=== PATIENT | female | born 1980 ===

== ENCOUNTER 2022-02-20 12:34 | Inpatient (IN) | payer OTHER ==
[~2022-02-20] VITALS: Ht 162.6 cm; Wt 97.6 kg
[2022-02-20 13:32] LABS: BASOPHILS % (AUTO) 0.8 % (0.0-2.0); EOSINOPHILS % (AUTO) 5.4 % (1.0-6.0); HEMATOCRIT 41.8 % (36-46); LYMPHOCYTES # (AUTO) 2.6 K/uL (1.0-4.8); LYMPHOCYTES % (AUTO) 24.5 % (22.0-44.0); MEAN CORPUSCULAR HEMOGLOBIN 26.9 pg (26.0-34.0); MEAN CORPUSCULAR HGB CONC 33.5 G/dL (31.0-37.0); MEAN CORPUSCULAR VOLUME 80 fL (80-100); MONOCYTES # (AUTO) 0.5 K/uL (0.1-1.0); MONOCYTES % (AUTO) 4.6 % (2.0-9.0); NEUTROPHILS # (AUTO) 6.8 K/uL (1.8-7.7); NEUTROPHILS % (AUTO) 64.7 % (40.0-70.0); PLATELET COUNT (AUTO) 298 K/uL (150-450); RED BLOOD CELL COUNT(AUTO) 5.21 MIL/uL (4.00-5.20); RED CELL DISTRIBUTION WIDTH 14.8 % (11.5-14.5)
[2022-02-20 13:46] LABS: ANION GAP 4 mmol/L (8-16); CALCIUM, TOTAL 9.3 mg/dL (8.8-10.5); CARBON DIOXIDE 28 mmol/L (22-29); CHLORIDE 100 mmol/L (98-107); CREATININE 0.91 mg/dL (0.60-1.30); GLUCOSE,RANDOM 213 mg/dL (70-110); POTASSIUM 4.1 mmol/L (3.5-5.1); SODIUM SERUM 132 mmol/L (136-145); UREA NITROGEN, BLOOD 14 mg/dL (7-18)
[2022-02-20 13:47] LABS: GLOMERULAR FILTR. RATE CALC > 60 mL/min (>60)
[2022-02-20 13:52] LABS: ALANINE AMINOTRANSFERASE 28 U/L (12-78); ALBUMIN 3.7 g/dL (3.4-5.0); ALKALINE PHOSPHATASE 99 U/L (46-116); ASPARTATE AMINOTRANSFERASE 18 U/L (15-37); BILIRUBIN,TOTAL 0.4 mg/dL (0.1-1.0); LIPASE 58 U/L (73-393); TOTAL PROTEIN, SERUM 7.5 g/dL (6.4-8.2)
[2022-02-20] MEDS ORDERED: ASPI-797 PO (14:57)
[2022-02-20 15:29] LABS: CREATINE KINASE, TOTAL ONLY 54 U/L (26-192)
[2022-02-20 16:00] LABS: PROTHROMBIN TIME 10.6 SEC (9.4-11.6)
[2022-02-20] MEDS ORDERED: ONDANSETRON HCL 4 MG/2 ML VIAL IVP PRN (19:45)
[2022-02-20] MEDS ORDERED: MORPHINE SULFATE 2 MG/ML SYRINGE IVP PRN (19:45)
[2022-02-20] MEDS ORDERED: ASPIRIN 325 MG TABLET PO ONE (19:45)
[2022-02-20] MEDS ORDERED: ATORVASTATIN CALCIUM 40 MG TABLET PO ONE (19:45)
[2022-02-20] MEDS: METOPROLOL TARTRATE 25 MG TABLET PO SCH (19:57)
[2022-02-20] MEDS ORDERED: NITROGLYCERIN 2% (1 GM=INCH) PACKET TP ONE (22:00)
[2022-02-20] MEDS ORDERED: AmLODIPine BESYLATE 10 MG TABLET PO ONE (22:00)
[2022-02-20] MEDS ORDERED: HydrALAZINE HCL 20 MG/ML VIAL IVP ONE (22:00)
[2022-02-20 23:21] LABS: COVID AG,FIA SOURCE NASAL SWAB
[2022-02-21] MEDS: ACETAMINOPHEN 325 MG TABLET PO PRN ×2 (00:25→20:02)
[2022-02-21] MEDS: HEPARIN SODIUM,PORCINE 5,000 UNITS/ML VIAL SQ SCH ×4 (00:25→23:59)
[2022-02-21 05:04] VITALS: BP 122/73
[2022-02-21 07:55] VITALS: BP 139/77
[2022-02-21] MEDS: METOPROLOL TARTRATE 25 MG TABLET PO SCH ×2 (09:24→20:02)
[2022-02-21] MEDS: ATORVASTATIN CALCIUM 40 MG TABLET PO SCH (09:24)
[2022-02-21] MEDS: ASPIRIN 81 MG CHEWABLE TABLET PO SCH (09:24)
[2022-02-21 11:16] VITALS: BP 150/75
[2022-02-21 15:19] VITALS: BP 157/86
[2022-02-21] MEDS ORDERED: NITROGLYCERIN 0.4 MG SUBLINGUAL TABLET #25 SL PRN (18:00)
[2022-02-21 18:11] LABS: GLUCOMETER DEV NAME(LOC) 5S.2B; GLUCOSE,POINT OF CARE 276 MG/DL (70-110)
[2022-02-21 19:11] LABS: APPEARANCE,URINE CLEAR (CLEAR); BILIRUBIN,URINE NEGATIVE (NEGATIVE); GLUCOSE, URINE (UA) >=1000 mg/dL (NEGATIVE); KETONES,URINE NEGATIVE (NEGATIVE); LEUKOCYTE ESTERASE ,URINE NEGATIVE (NEGATIVE); NITRATE,URINE NEGATIVE (NEGATIVE); OCCULT BLOOD,URINE NEGATIVE (NEGATIVE); PH,URINE 5.5 (5.0-8.0); PROTEIN,URINE NEGATIVE (NEGATIVE); SPECIFIC GRAVITIY, URINE 1.013 (1.003-1.030); UROBILINOGEN,URINE <=1.0 mg/dL (<=1.0)
[2022-02-21 19:21] LABS: AMPHET/METH SCREEN,URINE NEGATIVE (NEGATIVE); BARBITURATE SCREEN, URINE NEGATIVE (NEGATIVE); BENZODIAZEPINES SCREEN,URINE NEGATIVE (NEGATIVE); CANNABINOID SCREEN,URINE NEGATIVE (NEGATIVE); COCAINE SCREEN,URINE NEGATIVE (NEGATIVE); METHADONE SCREEN, URINE NEGATIVE (NEGATIVE); OPIATE SCREEN,URINE NEGATIVE (NEGATIVE); PHENCYCLIDINE SCREEN,URINE NEGATIVE (NEGATIVE)
[2022-02-21 19:24] LABS: BACTERIA,URINE Many /HPF (None Seen); RBC,URINE 0-2 /HPF (0-2); SQUAMOUS EPITHELIAL CELL,UR Rare /LPF (None Seen); WBC,URINE 0-2 /HPF (0-5)
[2022-02-21 20:21] LABS: GLUCOMETER DEV NAME(LOC) 5S.2B; GLUCOSE,POINT OF CARE 252 MG/DL (70-110)
[2022-02-21 20:26] VITALS: BP 141/95
[2022-02-21 23:58] VITALS: BP 138/86
[2022-02-22 04:38] VITALS: BP 138/89
[2022-02-22 07:03] LABS: BASOPHILS % (AUTO) 0.7 % (0.0-2.0); EOSINOPHILS % (AUTO) 6.4 % (1.0-6.0); HEMATOCRIT 39.3 % (36-46); HEMOGLOBIN 13.2 g/dL (12.0-16.0); LYMPHOCYTES # (AUTO) 2.6 K/uL (1.0-4.8); LYMPHOCYTES % (AUTO) 33.7 % (22.0-44.0); MEAN CORPUSCULAR HGB CONC 33.7 G/dL (31.0-37.0); MEAN CORPUSCULAR VOLUME 80 fL (80-100); MONOCYTES # (AUTO) 0.4 K/uL (0.1-1.0); MONOCYTES % (AUTO) 5.4 % (2.0-9.0); NEUTROPHILS # (AUTO) 4.1 K/uL (1.8-7.7); NEUTROPHILS % (AUTO) 53.8 % (40.0-70.0); PLATELET COUNT (AUTO) 272 K/uL (150-450); RED BLOOD CELL COUNT(AUTO) 4.91 MIL/uL (4.00-5.20); RED CELL DISTRIBUTION WIDTH 14.6 % (11.5-14.5)
[2022-02-22 07:06] LABS: GLUCOMETER DEV NAME(LOC) 5S.2B; GLUCOSE,POINT OF CARE 208 MG/DL (70-110)
[2022-02-22 07:18] LABS: ANION GAP 8 mmol/L (8-16); CALCIUM, TOTAL 8.8 mg/dL (8.8-10.5); CARBON DIOXIDE 28 mmol/L (22-29); CHLORIDE 101 mmol/L (98-107); CHOL/HDL RATIO 5.5 (3.9-5.7); CHOLESTEROL 186 mg/dL (131-200); CREATININE 0.77 mg/dL (0.60-1.30); GLUCOSE,RANDOM 243 mg/dL (70-110); HDL CHOLESTEROL 34 mg/dL (40-60); LDL CHOL (CALC.) 117 mg/dL (0-130); SODIUM SERUM 137 mmol/L (136-145); TRIGLYCERIDES 175 mg/dL (15-150); UREA NITROGEN, BLOOD 12 mg/dL (7-18)
[2022-02-22 07:20] LABS: GLOMERULAR FILTR. RATE CALC > 60 mL/min (>60)
[2022-02-22 07:28] LABS: HEMOGLOBIN A1C 11.1 % (3.8-5.6)
[2022-02-22 07:38] VITALS: BP 143/89
[2022-02-22] MEDS: ATORVASTATIN CALCIUM 40 MG TABLET PO SCH (08:40)
[2022-02-22] MEDS: ASPIRIN 81 MG CHEWABLE TABLET PO SCH (08:40)
[2022-02-22] MEDS: HEPARIN SODIUM,PORCINE 5,000 UNITS/ML VIAL SQ SCH ×2 (08:40→17:01)
[2022-02-22] MEDS ORDERED: REGADENOSON 0.4 MG/5 ML PF SYRINGE IVP ONE (08:45)
[2022-02-22] MEDS ORDERED: SESTAMIBI TC99M/UD ISOTOPE 1 EA INJ INJ ONE ×2 (09:55→12:10)
[2022-02-22 10:55] VITALS: BP 140/100
[2022-02-22] MEDS: METOPROLOL TARTRATE 25 MG TABLET PO SCH ×2 (11:07→20:18)
[2022-02-22 11:30] VITALS: BP 145/55
[2022-02-22 16:28] VITALS: BP 131/74
[2022-02-22] MEDS: MetFORMIN HCL 850 MG TABLET PO SCH (17:01)
[2022-02-22] MEDS: ACETAMINOPHEN 325 MG TABLET PO PRN (20:18)
[2022-02-22 21:09] VITALS: BP 143/94
[2022-02-22 21:31] LABS: GLUCOMETER DEV NAME(LOC) 5S.2B; GLUCOSE,POINT OF CARE 230 MG/DL (70-110)
[2022-02-22 21:31] LABS: GLUCOMETER DEV NAME(LOC) 5S.2B; GLUCOSE,POINT OF CARE 362 MG/DL (70-110)
[2022-02-23 00:07] VITALS: BP 144/92
[2022-02-23] MEDS: HEPARIN SODIUM,PORCINE 5,000 UNITS/ML VIAL SQ SCH ×2 (01:01→08:02)
[2022-02-23 05:15] VITALS: BP 142/87
[2022-02-23 07:31] VITALS: BP 161/89
[2022-02-23] MEDS: ATORVASTATIN CALCIUM 40 MG TABLET PO SCH (08:02)
[2022-02-23] MEDS: ACETAMINOPHEN 325 MG TABLET PO PRN (08:02)
[2022-02-23] MEDS: MetFORMIN HCL 850 MG TABLET PO SCH (08:03)
[2022-02-23] MEDS: ASPIRIN 81 MG CHEWABLE TABLET PO SCH (08:03)
[2022-02-23] MEDS: METOPROLOL TARTRATE 25 MG TABLET PO SCH (08:03)
[2022-02-23 11:23] VITALS: BP 137/78
[2022-02-23 12:06] LABS: GLUCOMETER DEV NAME(LOC) 5N.1C; GLUCOSE,POINT OF CARE 196 MG/DL (70-110)
[2022-02-23] MEDS ORDERED: ASPI81TA87 PO (14:14)
[2022-02-23] MEDS ORDERED: ATOR40TA71 PO (14:14)
[2022-02-23] MEDS ORDERED: METO25TA6 PO (14:15)
[2022-02-23] MEDS ORDERED: METF-1185 PO (14:16)
[2022-02-23 15:11] VITALS: BP 145/93
[2022-02-23 19:56] LABS: GLUCOMETER DEV NAME(LOC) 5S.2B; GLUCOSE,POINT OF CARE 244 MG/DL (70-110)
== END 2022-02-23 16:10 | DRG 305 ==
LOC: EMS 12:34 → 5N 22:19
PROVIDERS: ADMIT Internal Medicine; ATTEND Internal Medicine
PROC: 4A12XM4 Monitoring of Cardiac Stress, External Approach (ICD-10-PCS; principal; 2022-02-22)
PROC: 3E073KZ Introduction of Other Diagnostic Substance into Coronary Artery, Percutaneous Approach (ICD-10-PCS; 2022-02-22)
DX: I16.0 Hypertensive urgency (principal); E87.1 Hypo-osmolality and hyponatremia; I20.0 Unstable angina; R07.9 Chest pain, unspecified; I10 Essential (primary) hypertension; Z20.822 Contact with and (suspected) exposure to COVID-19; F17.210 Nicotine dependence, cigarettes, uncomplicated; G43.909 Migraine, unspecified, not intractable, without status migrainosus; F15.10 Other stimulant abuse, uncomplicated; E66.9 Obesity, unspecified; E11.65 Type 2 diabetes mellitus with hyperglycemia; Q24.9 Congenital malformation of heart, unspecified; Z79.82 Long term (current) use of aspirin; Z79.84 Long term (current) use of oral hypoglycemic drugs; Z79.899 Other long term (current) drug therapy; Z68.36 Body mass index [BMI] 36.0-36.9, adult
CPT/HCPCS: 71045; 78452; 80048; 80053; 80061; 80307; 81001; 81003; 82550; 82962; 83036; 83690; 83880; 84484; 84703; 85025; 85610; 85730; 87086; 93005; 93306; 99285; A9500; J0360; J1644; 36415-L1; 36415-TC

== ENCOUNTER 2022-05-10 02:12 | Emergency (ER) | payer OTHER ==
[~2022-05-10] VITALS: Ht 162.6 cm; Wt 100.0 kg
[~2022-05-10 02:12] MED LIST: ASPI-797 PO; ASPI81TA87 PO; ATOR40TA71 PO; METF-1185 PO; METO25TA6 PO
[2022-05-10 02:21] VITALS: BP 178/97
[2022-05-10 08:15] LABS: BASOPHILS % (AUTO) 0.6 % (0.0-2.0); EOSINOPHILS % (AUTO) 8.2 % (1.0-6.0); HEMATOCRIT 39.5 % (36-46); HEMOGLOBIN 13.2 g/dL (12.0-16.0); LYMPHOCYTES # (AUTO) 2.4 K/uL (1.0-4.8); LYMPHOCYTES % (AUTO) 21.9 % (22.0-44.0); MEAN CORPUSCULAR HEMOGLOBIN 27.5 pg (26.0-34.0); MEAN CORPUSCULAR HGB CONC 33.4 G/dL (31.0-37.0); MEAN CORPUSCULAR VOLUME 82 fL (80-100); MONOCYTES # (AUTO) 0.5 K/uL (0.1-1.0); MONOCYTES % (AUTO) 4.5 % (2.0-9.0); NEUTROPHILS % (AUTO) 64.8 % (40.0-70.0); PLATELET COUNT (AUTO) 301 K/uL (150-450); RED CELL DISTRIBUTION WIDTH 14.1 % (11.5-14.5)
[2022-05-10 08:22] LABS: APPEARANCE,URINE CLEAR (CLEAR); BILIRUBIN,URINE NEGATIVE (NEGATIVE); GLUCOSE, URINE (UA) >=1000 mg/dL (NEGATIVE); KETONES,URINE NEGATIVE (NEGATIVE); LEUKOCYTE ESTERASE ,URINE NEGATIVE (NEGATIVE); NITRATE,URINE POSITIVE (NEGATIVE); OCCULT BLOOD,URINE NEGATIVE (NEGATIVE); PROTEIN,URINE NEGATIVE (NEGATIVE); SPECIFIC GRAVITIY, URINE 1.013 (1.003-1.030); UROBILINOGEN,URINE <=1.0 mg/dL (<=1.0)
[2022-05-10 08:24] LABS: ANION GAP 7 mmol/L (8-16); CALCIUM, TOTAL 9.1 mg/dL (8.8-10.5); CARBON DIOXIDE 28 mmol/L (22-29); CHLORIDE 101 mmol/L (98-107); CREATININE 0.83 mg/dL (0.60-1.30); GLUCOSE,RANDOM 270 mg/dL (70-110); SODIUM SERUM 136 mmol/L (136-145); UREA NITROGEN, BLOOD 12 mg/dL (7-18)
[2022-05-10 08:27] LABS: AMPHET/METH SCREEN,URINE NEGATIVE (NEGATIVE); BARBITURATE SCREEN, URINE NEGATIVE (NEGATIVE); BENZODIAZEPINES SCREEN,URINE NEGATIVE (NEGATIVE); CANNABINOID SCREEN,URINE NEGATIVE (NEGATIVE); COCAINE SCREEN,URINE NEGATIVE (NEGATIVE); METHADONE SCREEN, URINE NEGATIVE (NEGATIVE); OPIATE SCREEN,URINE NEGATIVE (NEGATIVE)
[2022-05-10 08:28] LABS: PHENCYCLIDINE SCREEN,URINE NEGATIVE (NEGATIVE)
[2022-05-10 08:29] LABS: GLOMERULAR FILTR. RATE CALC > 60 mL/min (>60)
[2022-05-10 08:30] LABS: ALANINE AMINOTRANSFERASE 22 U/L (12-78); ALBUMIN 3.7 g/dL (3.4-5.0); ALKALINE PHOSPHATASE 140 U/L (46-116); ASPARTATE AMINOTRANSFERASE 11 U/L (15-37); BILIRUBIN,TOTAL 0.3 mg/dL (0.1-1.0); PROTHROMBIN TIME 10.2 SEC (9.4-11.6)
[2022-05-10 08:38] LABS: B-TYPE NATRIURETIC PEPTIDE 62 pg/mL (0-100)
[2022-05-10 08:59] LABS: BACTERIA,URINE Many /HPF (None Seen); RBC,URINE 0-2 /HPF (0-2); SQUAMOUS EPITHELIAL CELL,UR Few /LPF (None Seen); WBC,URINE 0-2 /HPF (0-5)
[2022-05-10] MEDS ORDERED: NITR-75 PO (09:14)
== END 2022-05-10 09:31 | disposition home or self-care (01) ==
LOC: EMS 02:12
DX: R00.2 Palpitations (principal); R07.9 Chest pain, unspecified; N39.0 Urinary tract infection, site not specified; M19.90 Unspecified osteoarthritis, unspecified site; G43.909 Migraine, unspecified, not intractable, without status migrainosus; R20.0 Anesthesia of skin; F17.210 Nicotine dependence, cigarettes, uncomplicated; F15.90 Other stimulant use, unspecified, uncomplicated; Z90.49 Acquired absence of other specified parts of digestive tract; Z98.890 Other specified postprocedural states; Z88.8 Allergy status to other drugs, medicaments and biological substances
CPT/HCPCS: 71045; 80053; 81001; 83880; 84484; 85025; 85610; 85730; 87086; 87186; 93005; 99285; 36415-L1; 36415-TC